=== PATIENT | female | born 1980 | race Caucasian/White ===

== ENCOUNTER 2017-01-07 00:18 | Emergency (ER) | payer OTHER ==
--- NOTE | 2017-01-07 00:28 | ED Physician Documentation ---
PD HPI CHEST PAIN - Stated complaint Stated Complaint: CHEST PRESSURE,HEAVINESS - History obtained from History obtained from: Patient - History of Present Illness Timing - onset: Today (just [employer]ESS[employer]) Timing - onset during: Rest (she was doing homework and drank some apple juice, noted some tingling feeling on her lips and throat as she drank it, and then had chest pressure/tightness develop just after swallowing it. Symptoms are easing enroute but not fully cleared as yet.) Timing - duration: Hours (1) Timing - details: Abrupt onset, Still present Quality: Tightness, Indigestion. No: Sharp, Tearing Location: Substernal Radiation: Back Worsened by: No: Inspiration, Movement, Palpation Associated symptoms: Nausea. No: Shortness of air, Diaphoresis, Feeling faint / dizzy, Palpitations Similar symptoms before: Has not had sx before Recently seen: Not recently seen Review of Systems Constitutional: denies: Fever, Chills Nose: denies: Rhinorrhea / runny nose, Congestion Throat: denies: Sore throat Respiratory: denies: Dyspnea, Cough GI: reports: Nausea, Other (has been having reflux/belching a lot after eating the past week or so.). denies: Abdominal Pain, Vomiting, Diarrhea Musculoskeletal: denies: Extremity swelling Neurologic: denies: Generalized weakness, Near syncope PD PAST MEDICAL HISTORY - Past Medical History Cardiovascular: None Respiratory: None Neuro: None Endocrine/Autoimmune: None - Present Medications Home Medications: Ambulatory Orders Medication Instructions Recorded Confirmed Famotidine [Pepcid] 20 mg PO ONCE #20 tablet 01/07/17 Lisinopril/Hydrochlorothiazide 1 tab PO DAILY 01/07/17 01/07/17 [Lisinopril-Hctz 10-12.5 mg Tab] - Allergies Allergies/Adverse Reactions: Allergies Allergy/AdvReac Type Severity Reaction Status Date / Time No Known Drug Allergies Allergy Verified 01/07/17 00:32 - Family History Family history: denies: CAD, Sudden PD ED PE NORMAL - Vitals Vital signs reviewed: Yes - General General: Alert and oriented X 3, No acute distress, Well developed/nourished - HEENT HEENT: Moist mucous membranes, Pharynx benign - Neck Neck: Supple, no meningeal sign, No adenopathy - Cardiac Cardiac: RRR, No murmur - Respiratory Respiratory: Clear bilaterally - Abdomen Abdomen: Normal bowel sounds, Soft, Non distended, No organomegaly, Other ( minimally tender epigastric area without guarding nor percussion tenderness. ) - Rectal Rectal: Deferred - Back Back: No CVA TTP - Derm Derm: Normal color, Warm and dry - Extremities Extremities: No deformity, No tenderness to palpate, Normal ROM s pain, No edema , No calf tenderness / cord - Neuro Neuro: Alert and oriented X 3, No motor deficit, Normal speech - Psych Psych: Normal mood, Normal affect Results - Vitals Vitals: Vital Signs - 24 hr 01/07/17 01/07/17 00:31 02:05 Temperature 36.8 C 36.5 C Heart Rate 74 67 Respiratory 18 20 Rate Blood Pressure 118/74 109/63 O2 Saturation 99 100 Oxygen O2 Source Room air - EKG (time done) 00:24 Rate: Rate (enter#) (87) Rhythm: NSR [place]: Normal Intervals: Normal CO QRS: Normal Ischemia: Normal ST segments. No: ST elevation c/w ischemia, ST depression - Labs Labs: Laboratory Tests 01/07/17 01/07/17 01/07/17 01:14 01:14 01:14 WBC 5.7 RBC 4.28 Hgb 12.6 Hct 38.3 MCV 89.4 MCH 29.5 MCHC 33.0 RDW 13.0 Plt Count 214 MPV 8.9 Neut # 3.0 Lymph # 2.1 [place] # 0.5 Eos # 0.1 Baso # 0.0 Absolute Nucleated RBC 0.00 Nucleated RBC % 0.0 Sodium 138 Potassium 3.1 L Chloride 103 Carbon Dioxide 27 Anion Gap 8.0 BUN 9 Creatinine 0.5 Estimated GFR (MDRD) 140 Glucose 90 Calcium 9.0 Magnesium 1.7 Total Bilirubin 0.4 AST 16 ALT 15 Alkaline Phosphatase 51 Troponin I < 0.04 Total Protein 7.1 Albumin 4.4 Globulin 2.7 Albumin/Globulin Ratio 1.6 Lipase 19 L - Rads (name of study) chest Radiology: Prelim report reviewed, EMP read contemporaneously (no acute process noted.) PD MEDICAL DECISION MAKING - ED course Complexity details: reviewed results, considered differential (has had heartburn /reflux symptoms intermittently after meals the past week or so, and then with chest pressure/tightness after drinking apple juice this evening. ECG, labs, CXR are okay. Presume esophageal spasm/irritation. ), d/w patient Departure - Departure Disposition: 01 Home, Self Care Clinical Impression: Esophagitis Chest pain Qualifiers: Chest pain type: precordial pain Qualified Code(s): R07.2 - Precordial pain Condition: Stable Record reviewed to determine appropriate education?: Yes Instructions: ED Chest Pain NonCardiac, ED GERD Follow-Up: MICHAEL Coyjennifer Gerber [Provider Group] Prescriptions: Famotidine [Pepcid] 20 mg PO ONCE #20 tablet Comments: Your EKG chest x-ray and basic blood tests are normal with the exception of a slightly low potassium. I think her symptoms relate to an irritation of the esophagus and can be caused by reflux. I would take an acid reducing medicine such as famotidine daily for the next couple of weeks. Use antacids such as Maalox or Mylanta or Tums if needed for heartburn symptoms. Follow-up with your primary care if symptoms have persisted beyond a few more days. Return if worsening or other symptoms are associated. Discharge Date/Time: 01/07/17 02:11
[2017-01-07] MEDS ORDERED: ASPIRIN 325 MG TABLET PO STA (00:51)
[2017-01-07] MEDS ORDERED: MAG HYDROX/AL HYDROX/SIMETH 30 ML UDC PO STA (00:51)
[2017-01-07] MEDS ORDERED: LIDOCAINE VISCOUS 2% 15 ML UDC MM STA (00:51)
[2017-01-07] MEDS ORDERED: ASPIRIN 325 MG TABLET PO ONE (01:05)
[2017-01-07] MEDS ORDERED: LIDOCAINE VISCOUS 2% 15 ML UDC MM ONE (01:05)
[2017-01-07] MEDS ORDERED: MAG HYDROX/AL HYDROX/SIMETH 30 ML UDC ONE (01:05)
[2017-01-07 01:23] LABS: BASOPHILS % (AUTO) 0.2 %; EOSINOPHILS # (AUTO) 0.1 10^3/uL (0.0-0.7); EOSINOPHILS % (AUTO) 1.1 %; HCT - HEMATOCRIT 38.3 % (37.0-47.0); HGB - HEMOGLOBIN 12.6 g/dL (12.0-16.0); LYMPHOCYTES # (AUTO) 2.1 10^3/uL (1.5-3.5); LYMPHOCYTES % (AUTO) 37.5 %; MEAN CORPUSCULAR HEMOGLOBIN 29.5 pg (27.0-31.0); MEAN CORPUSCULAR VOLUME 89.4 fL (81.0-99.0); MEAN PLATELET VOLUME 8.9 fL (7.9-10.8); MONOCYTES # (AUTO) 0.5 10^3/uL (0.0-1.0); MONOCYTES % (AUTO) 8.4 %; NEUTROPHILS % (AUTO) 52.8 %; RED BLOOD COUNT 4.28 10^6/uL (4.20-5.40); UNCORRECTED WHITE BLOOD COUNT 5.7 x10^3/uL; WHITE BLOOD COUNT 5.7 x10^3/uL (4.8-10.8)
[2017-01-07 01:31] LABS: ALBUMIN/GLOBULIN RATIO 1.6 (1.0-2.2); BILIRUBIN,TOTAL 0.4 mg/dL (0.2-1.0); CREATININE 0.5 mg/dL (0.4-1.0); MAGNESIUM 1.7 mg/dL (1.7-2.8); POTASSIUM 3.1 mmol/L (3.5-5.0); TOTAL PROTEIN 7.1 g/dL (6.7-8.2)
[2017-01-07] MEDS ORDERED: POTASSIUM BICARB 25 MEQ TABLET PO STA (01:37)
--- NOTE | 2017-01-07 01:41 | XRAY Preliminary Report ---
Exam: XR CHEST 2 VIEW PA/LAT IMPRESSION: Normal 2-view chest radiography. [facility] SITE ID: [id number]
--- NOTE | 2017-01-07 01:44 | XRAY Report ---
EXAM: CHEST RADIOGRAPHY EXAM DATE: 01/07/2017 01:28 AM. CLINICAL HISTORY: Chest tightness this evening. COMPARISON: None. TECHNIQUE: 2 views. FINDINGS: Lungs/Pleura: No focal opacities evident. No pleural effusion. No pneumothorax. Normal volumes. Mediastinum: Heart and mediastinal contours are unremarkable. Other: None. IMPRESSION: Normal 2-view chest radiography. [facility] Referring Provider Line: [phone] SITE ID: [id number]
[2017-01-07] MEDS ORDERED: FAMOTIDINE 20 MG TABLET PO STA (01:59)
[2017-01-07 02:06] VITALS: BP 109/63
[2017-01-07] MEDS ORDERED: FAMOTIDINE 20 MG TABLET ONE (02:08)
[2017-01-07] MEDS ORDERED: POTASSIUM BICARB 25 MEQ TABLET PO ONE (02:09)
== END 2017-01-07 02:11 | disposition home or self-care (01) ==
LOC: ED 00:18
DX: K20.9 Esophagitis, unspecified (principal); R07.9 Chest pain, unspecified
CPT/HCPCS: 36415; 71020; 80053; 83690; 83735; 84484; 85025; 93005; 99283; A9270